=== PATIENT | male | born 1995 | race Two or more races ===

== ENCOUNTER 2019-07-10 06:25 | Outpatient (CLI) | payer OTHER | END 2019-07-10 07:56 | disposition home or self-care (01) | LOC: LAB 06:25 | DX: R73.01 Impaired fasting glucose (principal); B19.10 Unspecified viral hepatitis B without hepatic coma; Z13.220 Encounter for screening for lipoid disorders; R53.83 Other fatigue; F90.0 Attention-deficit hyperactivity disorder, predominantly inattentive type; Z11.4 Encounter for screening for human immunodeficiency virus [HIV]; R30.0 Dysuria; A53.9 Syphilis, unspecified; A64 Unspecified sexually transmitted disease ==